=== PATIENT | female | born 1945 | race Two or more races ===

== ENCOUNTER 2018-06-06 11:47 | Inpatient (IN) | payer MEDICARE, MEDICAID ==
[~2018-06-06] VITALS: Ht 152.4 cm; Wt 44.5 kg
[2018-06-06] MEDS ORDERED: MIRT15TA7 PO (12:58)
[2018-06-06] MEDS ORDERED: LEVO50TA8 PO (12:58)
[2018-06-06] MEDS ORDERED: LORA0.5T PO (12:58)
[2018-06-06] MEDS ORDERED: METR-147 PO (12:58)
[2018-06-06] MEDS ORDERED: ROSU10TA28 PO (12:58)
[2018-06-06] MEDS ORDERED: GABA-534 PO (12:58)
[2018-06-06] MEDS ORDERED: ASPI-1152 PO (12:58)
[2018-06-06] MEDS ORDERED: DICY10CA13 PO (12:58)
[2018-06-06] MEDS ORDERED: ACETAMINOPHEN 325 MG TABLET PO PRN (13:00)
[2018-06-06] MEDS ORDERED: TEMAZEPAM 7.5 MG CAPSULE PO PRN (13:00)
[2018-06-06] MEDS ORDERED: MAGNESIUM HYDROXIDE 30 ML UDC PO PRN (13:00)
[2018-06-06] MEDS ORDERED: MAG HYDROX/AL HYDROX/SIMETH 30 ML UDC PO PRN (13:00)
[2018-06-06 13:42] VITALS: BP 137/89
[2018-06-06 16:00] VITALS: BP 153/89
[2018-06-06] MEDS: LORAZEPAM 0.5 MG TABLET PO PRN (17:15)
[2018-06-06 20:00] VITALS: BP 122/71
[2018-06-06] MEDS ORDERED: MIRTAZAPINE 15 MG TABLET PO ONE (21:30)
[2018-06-06] MEDS ORDERED: MIRTAZAPINE 15 MG TABLET PO SCH ×2 (22:00)
[2018-06-06] MEDS ORDERED: RIVASTIGMINE TARTRATE 1.5 MG CAPSULE PO ONE (22:00)
[2018-06-06] MEDS ORDERED: DIVALPROEX SODIUM 250 MG TABLET.DR PO ONE (22:00)
[2018-06-06] MEDS ORDERED: risperiDONE 0.25 MG TABLET PO ONE (22:00)
[2018-06-06] MEDS: GABAPENTIN 300 MG CAPSULE PO SCH (22:29)
[2018-06-07 07:31] LABS: BASOPHILS % (AUTO) 0.7 % (0.0-2.0); EOSINOPHILS % (AUTO) 1.9 % (0.0-6.0); HEMATOCRIT 38 % (33-45); HEMOGLOBIN 13.1 g/dL (11.5-14.8); LYMPHOCYTES # (AUTO) 1.3 /CMM (0.8-4.8); MEAN CORPUSCULAR HGB CONC 35 g/dl (31.0-36.0); MEAN CORPUSCULAR VOLUME 90 fL (82-100); MONOCYTES # (AUTO) 0.4 /CMM (0.1-1.30); MONOCYTES % (AUTO) 8.7 % (2.0-12.0); NEUTROPHILS # (AUTO) 3.2 /CMM (1.8-8.9); NEUTROPHILS % (AUTO) 62.7 % (43.0-81.0); PLATELET COUNT (AUTO) 210 /CMM (150-450); RED BLOOD CELL COUNT(AUTO) 4.24 MIL/uL (4.0-5.2)
[2018-06-07 07:34] LABS: THYROID STIMULATING HORMONE 0.229 uIU/mL (0.358-3.74)
[2018-06-07 07:47] LABS: ALANINE AMINOTRANSFERASE 22 U/L (12-78); ALBUMIN 3.6 g/dL (3.4-5.0); ALKALINE PHOSPHATASE 56 U/L (46-116); ASPARTATE AMINOTRANSFERASE 18 U/L (15-37); BILIRUBIN,TOTAL 0.4 mg/dL (0.2-1.0); CARBON DIOXIDE 28 mmol/L (21-32); CHLORIDE 104 mmol/L (98-107); CREATININE 0.8 mg/dL (0.6-1.3); GLUCOSE 104 mg/dL (74-106); POTASSIUM 4.2 mmol/L (3.5-5.1); SODIUM SERUM 140 mmol/L (136-145); TOTAL PROTEIN, SERUM 6.9 g/dL (6.4-8.2); UREA NITROGEN, BLOOD 24 mg/dL (7-18)
[2018-06-07 08:00] VITALS: BP 129/82
[2018-06-07] MEDS: ATORVASTATIN 10 MG TABLET PO SCH (09:39)
[2018-06-07] MEDS: ASPIRIN EC 81 MG TABLET.DR PO SCH (09:39)
[2018-06-07] MEDS: LEVOTHYROXINE SODIUM 50 MCG TABLET PO SCH (09:39)
[2018-06-07] MEDS: RIVASTIGMINE TARTRATE 1.5 MG CAPSULE PO SCH ×2 (09:41→21:09)
[2018-06-07] MEDS: DIVALPROEX SODIUM 250 MG TABLET.DR PO SCH ×2 (09:42→21:09)
[2018-06-07] MEDS: risperiDONE 0.25 MG TABLET PO SCH ×2 (09:42→21:09)
[2018-06-07] MEDS: DICYCLOMINE HCL 10 MG CAPSULE PO PRN (15:52)
[2018-06-07 16:00] VITALS: BP 148/99
[2018-06-07 20:00] VITALS: BP 145/60
[2018-06-07] MEDS: GABAPENTIN 300 MG CAPSULE PO SCH (21:09)
[2018-06-07] MEDS: MIRTAZAPINE 15 MG TABLET PO SCH (21:09)
[2018-06-07] MEDS: LORAZEPAM 0.5 MG TABLET PO PRN (22:45)
[2018-06-08 08:00] VITALS: BP 126/84
[2018-06-08] MEDS: RIVASTIGMINE TARTRATE 1.5 MG CAPSULE PO SCH ×2 (09:30→21:20)
[2018-06-08] MEDS: ASPIRIN EC 81 MG TABLET.DR PO SCH (09:30)
[2018-06-08] MEDS: DIVALPROEX SODIUM 250 MG TABLET.DR PO SCH ×2 (09:31→21:20)
[2018-06-08] MEDS: LEVOTHYROXINE SODIUM 50 MCG TABLET PO SCH (09:31)
[2018-06-08] MEDS: risperiDONE 0.25 MG TABLET PO SCH ×2 (09:31→21:20)
[2018-06-08] MEDS: ATORVASTATIN 10 MG TABLET PO SCH (09:32)
[2018-06-08] MEDS: LORAZEPAM 0.5 MG TABLET PO PRN (10:30)
[2018-06-08 16:00] VITALS: BP_SYST 110; BP_SYST 135; BP_DIAS 61; BP_DIAS 65
[2018-06-08 20:00] VITALS: BP 109/54
[2018-06-08] MEDS: GABAPENTIN 300 MG CAPSULE PO SCH (21:20)
[2018-06-08] MEDS: MIRTAZAPINE 15 MG TABLET PO SCH (21:23)
[2018-06-09 08:26] VITALS: BP 130/74
[2018-06-09] MEDS: ASPIRIN EC 81 MG TABLET.DR PO SCH (08:30)
[2018-06-09] MEDS: RIVASTIGMINE TARTRATE 1.5 MG CAPSULE PO SCH ×2 (08:30→21:41)
[2018-06-09] MEDS: risperiDONE 0.25 MG TABLET PO SCH (08:30)
[2018-06-09] MEDS: LEVOTHYROXINE SODIUM 50 MCG TABLET PO SCH (08:30)
[2018-06-09] MEDS: DIVALPROEX SODIUM 250 MG TABLET.DR PO SCH ×2 (08:30→21:40)
[2018-06-09] MEDS: ATORVASTATIN 10 MG TABLET PO SCH (08:34)
[2018-06-09 16:00] VITALS: BP 113/77
[2018-06-09 20:00] VITALS: BP 141/67
[2018-06-09] MEDS: GABAPENTIN 300 MG CAPSULE PO SCH (21:40)
[2018-06-09] MEDS: MIRTAZAPINE 15 MG TABLET PO SCH (21:40)
[2018-06-10 08:00] VITALS: BP 139/77
[2018-06-10] MEDS: RIVASTIGMINE TARTRATE 1.5 MG CAPSULE PO SCH ×2 (08:55→21:30)
[2018-06-10] MEDS: ATORVASTATIN 10 MG TABLET PO SCH (08:56)
[2018-06-10] MEDS: ASPIRIN EC 81 MG TABLET.DR PO SCH (08:56)
[2018-06-10] MEDS: DIVALPROEX SODIUM 250 MG TABLET.DR PO SCH (08:56)
[2018-06-10] MEDS: risperiDONE 1 MG TABLET PO SCH ×2 (08:56→18:15)
[2018-06-10] MEDS: LEVOTHYROXINE SODIUM 50 MCG TABLET PO SCH (08:56)
[2018-06-10] MEDS: LORAZEPAM 0.5 MG TABLET PO PRN (12:01)
[2018-06-10 16:08] VITALS: BP 147/80
[2018-06-10] MEDS: GABAPENTIN 300 MG CAPSULE PO SCH (21:30)
[2018-06-10] MEDS: MIRTAZAPINE 15 MG TABLET PO SCH (21:31)
[2018-06-11 08:00] VITALS: BP 146/87
[2018-06-11] MEDS: ATORVASTATIN 10 MG TABLET PO SCH (08:47)
[2018-06-11] MEDS: LEVOTHYROXINE SODIUM 50 MCG TABLET PO SCH (08:47)
[2018-06-11] MEDS: RIVASTIGMINE TARTRATE 1.5 MG CAPSULE PO SCH ×2 (08:48→21:45)
[2018-06-11] MEDS: DIVALPROEX SODIUM 250 MG TABLET.DR PO SCH ×3 (08:48→16:53)
[2018-06-11] MEDS: ASPIRIN EC 81 MG TABLET.DR PO SCH (08:48)
[2018-06-11] MEDS: risperiDONE 0.25 MG TABLET PO SCH ×2 (08:48→16:54)
[2018-06-11 16:00] VITALS: BP 156/81
[2018-06-11 20:31] VITALS: BP 126/81
[2018-06-11] MEDS: DICYCLOMINE HCL 10 MG CAPSULE PO PRN (21:36)
[2018-06-11] MEDS: GABAPENTIN 300 MG CAPSULE PO SCH (21:44)
[2018-06-11] MEDS: MIRTAZAPINE 15 MG TABLET PO SCH (21:44)
[2018-06-11] MEDS: LORAZEPAM 0.5 MG TABLET PO PRN (22:23)
[2018-06-12 08:00] VITALS: BP 111/75
[2018-06-12] MEDS: RIVASTIGMINE TARTRATE 1.5 MG CAPSULE PO SCH ×2 (08:22→20:54)
[2018-06-12] MEDS: risperiDONE 0.25 MG TABLET PO SCH ×2 (08:22→16:10)
[2018-06-12] MEDS: ASPIRIN EC 81 MG TABLET.DR PO SCH (08:22)
[2018-06-12] MEDS: LEVOTHYROXINE SODIUM 50 MCG TABLET PO SCH (08:22)
[2018-06-12] MEDS: DIVALPROEX SODIUM 250 MG TABLET.DR PO SCH ×3 (08:22→16:10)
[2018-06-12] MEDS: ATORVASTATIN 10 MG TABLET PO SCH (09:26)
[2018-06-12 16:00] VITALS: BP 131/92
[2018-06-12 20:00] VITALS: BP 106/64
[2018-06-12] MEDS: GABAPENTIN 300 MG CAPSULE PO SCH (20:53)
[2018-06-12] MEDS: MIRTAZAPINE 15 MG TABLET PO SCH (20:54)
[2018-06-13 08:00] VITALS: BP 115/62
[2018-06-13] MEDS: ASPIRIN EC 81 MG TABLET.DR PO SCH (08:22)
[2018-06-13] MEDS: risperiDONE 0.25 MG TABLET PO SCH ×2 (08:23→16:20)
[2018-06-13] MEDS: ATORVASTATIN 10 MG TABLET PO SCH (08:23)
[2018-06-13] MEDS: DIVALPROEX SODIUM 250 MG TABLET.DR PO SCH ×3 (08:23→16:20)
[2018-06-13] MEDS: LEVOTHYROXINE SODIUM 50 MCG TABLET PO SCH (08:24)
[2018-06-13] MEDS: RIVASTIGMINE TARTRATE 1.5 MG CAPSULE PO SCH ×2 (08:24→21:39)
[2018-06-13 16:00] VITALS: BP 137/65
[2018-06-13 20:00] VITALS: BP 133/74
[2018-06-13] MEDS: GABAPENTIN 300 MG CAPSULE PO SCH (21:39)
[2018-06-13] MEDS: MIRTAZAPINE 15 MG TABLET PO SCH (21:39)
[2018-06-14 08:00] VITALS: BP 140/85
[2018-06-14] MEDS: DIVALPROEX SODIUM 250 MG TABLET.DR PO SCH ×3 (08:31→17:12)
[2018-06-14] MEDS: ASPIRIN EC 81 MG TABLET.DR PO SCH (08:31)
[2018-06-14] MEDS: RIVASTIGMINE TARTRATE 1.5 MG CAPSULE PO SCH ×2 (08:31→21:26)
[2018-06-14] MEDS: ATORVASTATIN 10 MG TABLET PO SCH (08:31)
[2018-06-14] MEDS: risperiDONE 0.25 MG TABLET PO SCH ×2 (08:31→17:12)
[2018-06-14] MEDS: LEVOTHYROXINE SODIUM 50 MCG TABLET PO SCH (08:31)
[2018-06-14 16:00] VITALS: BP 156/76
[2018-06-14 20:00] VITALS: BP 129/76
[2018-06-14] MEDS: GABAPENTIN 300 MG CAPSULE PO SCH (21:27)
[2018-06-14] MEDS: MIRTAZAPINE 15 MG TABLET PO SCH (21:27)
[2018-06-15] MEDS: LEVOTHYROXINE SODIUM 50 MCG TABLET PO SCH (07:30)
[2018-06-15 08:00] VITALS: BP 132/80
[2018-06-15] MEDS: RIVASTIGMINE TARTRATE 1.5 MG CAPSULE PO SCH ×2 (09:00→21:38)
[2018-06-15] MEDS: risperiDONE 0.25 MG TABLET PO SCH ×2 (09:00→17:00)
[2018-06-15] MEDS: DIVALPROEX SODIUM 250 MG TABLET.DR PO SCH ×3 (09:00→17:00)
[2018-06-15] MEDS: ASPIRIN EC 81 MG TABLET.DR PO SCH (09:00)
[2018-06-15] MEDS: ATORVASTATIN 10 MG TABLET PO SCH (09:00)
[2018-06-15 16:00] VITALS: BP 145/75
[2018-06-15 20:31] VITALS: BP 143/76
[2018-06-15] MEDS: GABAPENTIN 300 MG CAPSULE PO SCH (21:38)
[2018-06-15] MEDS: MIRTAZAPINE 15 MG TABLET PO SCH (21:39)
[2018-06-16] MEDS: LEVOTHYROXINE SODIUM 50 MCG TABLET PO SCH (07:30)
[2018-06-16 08:00] VITALS: BP 122/59
[2018-06-16] MEDS: DIVALPROEX SODIUM 250 MG TABLET.DR PO SCH ×2 (09:00→12:40)
[2018-06-16] MEDS: ATORVASTATIN 10 MG TABLET PO SCH (09:00)
[2018-06-16] MEDS: RIVASTIGMINE TARTRATE 1.5 MG CAPSULE PO SCH (09:54)
[2018-06-16] MEDS: risperiDONE 0.25 MG TABLET PO SCH (09:54)
[2018-06-16] MEDS: ASPIRIN EC 81 MG TABLET.DR PO SCH (09:55)
== END 2018-06-16 14:50 | DRG 885 ==
LOC: GPS 12:21
PROVIDERS: ADMIT Psychiatry & Neurology Psychiatry; ATTEND Psychiatry & Neurology Psychosomatic Medicine
DX: F31.64 Bipolar disorder, current episode mixed, severe, with psychotic features (principal); E03.9 Hypothyroidism, unspecified; E78.5 Hyperlipidemia, unspecified; F03.90 Unspecified dementia, unspecified severity, without behavioral disturbance, psychotic disturbance, mood disturbance, and anxiety; I10 Essential (primary) hypertension; K21.9 Gastro-esophageal reflux disease without esophagitis; Z86.73 Personal history of transient ischemic attack (TIA), and cerebral infarction without residual deficits; Z91.81 History of falling; Z73.6 Limitation of activities due to disability; R10.9 Unspecified abdominal pain; F39 Unspecified mood [affective] disorder
CPT/HCPCS: 36415; 80053-TC; 80061-TC; 80164-TC; 84300-TC; 84443-TC; 85025-TC; 87081-TC